=== PATIENT | female | born 2005 | race Caucasian/White ===

== ENCOUNTER 2023-03-11 03:45 | Emergency (ER) | payer OTHER, SELFPAY ==
[2023-03-11 03:50] VITALS: BP 133/84; PULSE 125; RESP 20; TEMP 36.6; O2SAT 98; BMI 18.3
--- NOTE | 2023-03-11 03:54 | ED_ITS ---
HPI - Nausea/Vomiting/Diarrhea General: Chief complaint: Nausea/Vomiting/Diarrhea Stated complaint: n/v/d Time Seen by Provider: 03/11/23 03:46 Source: patient Mode of arrival: ambulatory Limitations: no limitations History of Present Illness: 17-year-old female states that since 9 PM she has had nausea vomiting along with diarrhea. States she had multiple episodes of watery diarrhea along with vomi ting. States she has had some abdominal cramping denies any severe pain. She denies any worsening improving factors. Associated nausea: Yes Associated symtoms: Reports nausea; Denies chest pain, dysuria or headache(s) Review of Systems Const: Denies: fever(s), chills, body aches or change in appetite ENMT: Denies: throat pain or dental pain Card: Denies: chest pain Resp: Denies: dyspnea GI: Reports: abdominal pain, nausea, vomiting and diarrhea : Denies: dysuria Musc: Denies: neck pain or back pain Skin/Breast: Denies: rash Neuro: Denies: headache(s) Physical Exam 2 Const: COMMON NORMALS: no acute distress, patient oriented x3 and healthy appearing HENMT: COMMON NORMALS: normocephalic and atraumatic HEAD & SCALP: normocephalic and atraumatic Eye: COMMON NORMALS: conjunctivae normal CONJUNCTIVA: Yes conjunctivae normal Neck/C-Spine: COMMON NORMALS: supple Chest: COMMONS NORMALS: normal inspection of the chest and normal palpation of entire chest wall Resp: COMMON NORMALS: normal respiratory effort, No retractions, No use of accessory muscles and clear to auscultation bilaterally AUSCULTATION: clear to auscultation bilaterally Cardio: COMMON NORMALS: regular rhythm and No murmurs present (Cardio) RATE: tachycardic RHYTHM: regular rhythm GI: COMMON NORMALS: Normal to inspection, nondistended, normoactive bowel sounds present, Soft to palpation, non-tender and no masses PALPATION: Yes Soft to palpation Extremity: COMMON NORMALS: normal to inspection and full ROM Neuro: COMMON NORMALS: patient oriented x3, moves all extremities and no focal motor deficits Psych: COMMON NORMALS: mental status grossly normal, Normal thought process present and cooperative THOUGHT PROCESS: Normal thought process present Skin: COMMON NORMALS: no rashes or lesions noted and no wounds GENERAL SKIN EXAM: no rashes or lesions noted Course Vital Signs: Vital signs: Vital Signs Temperature 98 F 03/11/23 03:50 Pulse Rate 84 03/11/23 04:34 Respiratory Rate 18 03/11/23 04:34 Blood Pressure 107/52 03/11/23 04:34 Pulse Oximetry 100 03/11/23 04:34 Oxygen Delivery Me thod Room Air 03/11/23 04:34 MDM - Nausea/Vomiting/Diarrhea Medical Decision Making Patient presents here with vomiting diarrhea that is likely a viral gastroenteritis or food poisoning she feels much improved after IV fluids and Zofran. Patient's blood work here is normal abdominal exam is benign we will prescribe Zofran for home patient is to follow-up PCP and return if worsening. Medical Records I reviewed the patient's medical records. Lab Data I reviewed the patient's lab results. 03/11/23 04:00 03/11/23 04:00 Laboratory Results WBC 13.60 10^3/uL (4.5-13.0) H 03/11/23 04:00 RBC 5.17 10^6/uL (3.85-5.65) 03/11/23 04:00 Hgb 15.70 g/dL (12.4-14.8) H 03/11/23 04:00 Hct 47.1 % (36-47) H 03/11/23 04:00 MCV 91.1 fl (85-98) 03/11/23 04:00 MCH 30.4 pg (27-33) 03/11/23 04:00 MCHC 33.3 g/dL (30-55) 03/11/23 04:00 RDW 12.3 % (12.1-15.1) 03/11/23 04:00 Plt Count 161 10^3/cmm (157-399) 03/11/23 04:00 MPV 11.6 fL (7.4-10.4) H 03/11/23 04:00 Neut % (Auto) 90.6 % 03/11/23 04:00 Lymph % (Auto) 4.6 % 03/11/23 04:00 [place] % (Auto) 4.5 % 03/11/23 04:00 Eos % (Auto) 0.0 % 03/11/23 04:00 Baso % (Auto) 0.1 % 03/11/23 04:00 Neut # (Auto) 12.32 10^3/uL (1.8-8.0) H 03/11/23 04:00 Lymph # (Auto) 0.6 10^3/uL (1.5-6.5) L 03/11/23 04:00 [place] # (Auto) 0.6 10^3/uL (0.2-0.9) 03/11/23 04:00 Eos # (Auto) 0.0 10^3/uL (0.0-0.8) 03/11/23 04:00 Baso # (Auto) 0.0 10^3/uL (0.0-0.1) 03/11/23 04:00 Nucleated RBC % (auto) 0 % 03/11/23 04:00 Nucleated RBCs # 0.0 /100WBC 03/11/23 04:00 Sodium 141 mmol/L (136-145) 03/11/23 04:00 Potassium 3.5 mmol/L (3.5-5.1) 03/11/23 04:00 Chloride 101 mmol/L (98-107) 03/11/23 04:00 Carbon Dioxide 24 mmol/L (22-29) 03/11/23 04:00 Anion Gap 19.5 (5-19) H 03/11/23 04:00 BUN 13 mg/dL (6-20) 03/11/23 04:00 Creatinine 0.7 mg/dL (0.5-0.9) 03/11/23 04:00 GFR Calculation 107.8 mL/min (90-130) 03/11/23 04:00 Glucose 117 mg/dL (65-115) H 03/11/23 04:00 Calculated Osmolality 293 mOsm/kg (285-295) 03/11/23 04:00 Calcium 9.7 mg/dL (8.5-10.5) 03/11/23 04:00 Total Bilirubin 0.8 mg/dL (0.15-1.2) 03/11/23 04:00 AST 13 U/L (0-32) 03/11/23 04:00 ALT 9 U/L (0-33) 03/11/23 04:00 Alkaline Phosphatase 70 U/L (35-105) 03/11/23 04:00 Total Protein 8.2 g/dL (6.6-8.7) 03/11/23 04:00 Albumin 5.2 g/dL (3.5-5.2) 03/11/23 04:00 Globulin 3.0 g/dL (1.3-4.6) 03/11/23 04:00 Lipase 9 U/L (13-60) L 03/11/23 04:00 HCG, Qual Negative (Negative) 03/11/23 04:00 No radiology studies performed this visit Discharge Plan Discharge Patient Disposition: Home Clinical Impression: Vomiting Condition: Stable Prescriptions: New ondansetron 4 mg tablet,disintegrating 4 mg PO Q6H PRN (Reason: nausea and vomiting) Qty: 14 0RF Discharge Orders: Discharge ED (Routine); Ordered 03/11/23 Ordered By: Althea Ambriz Referrals: Monty Noguera MD [Physician] - 1-3 days Discharge Diet: Advance as tolerated Discharge Activity: Use walker/crutches as instructed Patient Instructions: Acute Nausea and Vomiting (ED) Coding Level of Care Code ED Labor And Delivery Nurse for Marcos Bonilla
[2023-03-11] MEDS: ondansetron 2 mg/ML SDV 2 mL 4 MG IVP (04:01)
[2023-03-11] MEDS: diphenoxylate/atropine Tablet 1 TAB PO (04:01)
[2023-03-11] MEDS: sodium chloride 0.9% 1,000 ML 999 ML IV ×2 (04:02→05:03)
[2023-03-11 04:05] LABS: Basophils % 0.1 %; Hematocrit 47.1 % (36-47); Lymphocytes # 0.6 10^3/uL (1.5-6.5); Lymphocytes % 4.6 %; Mean Corpuscular HGB Conc 33.3 g/dL (30-55); Mean Corpuscular Hemoglobin 30.4 pg (27-33); Mean Corpuscular Volume 91.1 fl (85-98); Mean Platelet Volume 11.6 fL (7.4-10.4); Monocytes # 0.6 10^3/uL (0.2-0.9); Monocytes % 4.5 %; Neutrophils # 12.32 10^3/uL (1.8-8.0); Neutrophils % 90.6 %; Nucleated Red Blood Cells % 0 %; Platelet Count 161 10^3/cmm (157-399); Red Blood Count 5.17 10^6/uL (3.85-5.65); Red Cell Distribution Width 12.3 % (12.1-15.1)
[2023-03-11 04:08] VITALS: BP 133/84; PULSE 96; RESP 18; O2SAT 97
[2023-03-11 04:30] LABS: Alanine Aminotransferase 9 U/L (0-33); Albumin Level 5.2 g/dL (3.5-5.2); Alkaline Phosphatase 70 U/L (35-105); Anion Gap 19.5 (5-19); Aspartate Amino Transferase 13 U/L (0-32); Blood Urea Nitrogen 13 mg/dL (6-20); Calcium 9.7 mg/dL (8.5-10.5); Carbon Dioxide 24 mmol/L (22-29); Chloride 101 mmol/L (98-107); Glomerular Filtration Rate 107.8 mL/min (90-130); Glucose 117 mg/dL (65-115); Lipase 9 U/L (13-60); Osmolality Calculated 293 mOsm/kg (285-295); Potassium 3.5 mmol/L (3.5-5.1); Sodium 141 mmol/L (136-145); Total Bilirubin 0.8 mg/dL (0.15-1.2); Total Protein 8.2 g/dL (6.6-8.7)
[2023-03-11 04:34] VITALS: BP 107/52; PULSE 84; RESP 18; O2SAT 100
[2023-03-11 04:47] LABS: HCG, Serum Qual Negative (Negative)
[2023-03-11 05:06] VITALS: BP 105/60; PULSE 96; RESP 18; O2SAT 100
[2023-03-11 05:30] VITALS: BP 101/52; PULSE 89; RESP 18; O2SAT 100
[2023-03-11 05:32] LABS: Urine Appearance Clear (CLEAR); Urine Color Yellow (Yellow)
[2023-03-11 05:33] LABS: Add Urine Culture? No; Add Urine Microscopic? YES; Amorphous Sediment Urine 1+ /hpf; Bacteria Urine TRACE /hpf; Bilirubin Urine 1+ (Negative); Blood Urine Trace (Negative); Glucose Urine UA Norm (Normal); Ketones Urine 3+ (Negative); Leukocyte Esterase Urine Trace (Negative); Mucus Urine 2+ /hpf; Nitrate Urine Negative (Negative); Protein Urine 1+ (Negative); RBC Urine RARE /hpf (0-2); Specific Gravity, Urine 1.025 (1.005-1.030); Squamous Epithelial Cell Urine 0-4 /hpf (0-5); Urobilinogen Urine Neg (Negative); WBC Urine RARE /hpf (0-5); pH Urine 5 (5-7)
[2023-03-11 05:53] VITALS: BP 103/56; PULSE 103; RESP 14; O2SAT 99
== END 2023-03-11 05:54 | disposition home or self-care (01) ==
PROVIDERS: Emergency Provider Emergency Medicine
DX: R11.11 Vomiting without nausea (principal)
CPT/HCPCS: 80053; 81001; 83690; 84703; 85025; 96361; 96374; 99284; J2405; J7030